=== PATIENT | female | born 1995 | race Caucasian/White ===

== ENCOUNTER 2016-11-20 07:03 | Emergency (ER) | payer BC ==
[2016-11-20 07:21] VITALS: BP 129/81; PULSE 62; RESP 16; TEMP 98.2; O2SAT 98
[2016-11-20] MEDS ORDERED: IBUPROFEN 200 MG TAB PO ONE (07:22)
--- NOTE | 2016-11-20 07:28 | UCPHY ---
H & P Time Seen by Provider: 11/20/16 07:24 Patient Type: New HPI/ROS: CHIEF COMPLAINT: Sore throat History by patient HISTORY OF PRESENT ILLNESS: 21-year-old woman who is otherwise healthy presents complaining of sore throat which she describes mostly as itchy. She says it does hurt to swallow, but she is able to take fluids without difficulty. There is no dysphonia. There is no fever or cough. She does have a runny nose and she says her throat feels scratchy. There is no difficulty breathing. She has not taken anything for it. She denies any swollen lymph nodes. She is otherwise feeling well. She has been exposed to strep. REVIEW OF SYSTEMS: As in HPI, and all other systems reviewed and are negative Smoking Status: Never smoked Physical Exam: General Appearance: Alert and no distress. Head: normocephalic, atraumatic, no sinus tenderness Eyes: Pupils equal and round no injection. Ears: TM clear bilat OP: mucus membranes moist, mild erythema, no tonsillar enlargement, no exudates Neck: no meningismus, small right nontender cervical node, no submandibular nodes Respiratory: Chest is nontender, lungs are clear to auscultation. Cardiac: regular rate and rhythm. Gastrointestinal: Abdomen is soft and nontender, no masses, bowel sounds normal. Musculoskeletal: Neck is supple and nontender. Extremities have full range of motion and are nontender. Skin: No rashes or lesions. Constitutional: Initial Vital Signs Temperature (C) 36.8 C 11/20/16 07:14 Heart Rate 62 11/20/16 07:14 Respiratory Rate 16 11/20/16 07:14 Blood Pressure 129/81 H 11/20/16 07:14 O2 Sat (%) 98 11/20/16 07:14 O2 Delivery Mode Room Air Allergies/Adverse Reactions: No Known Allergies Allergy (Unverified 11/20/16 07:12) Home Medications: Medication Instructions Recorded Bcp 11/20/16 Medical Decision Making ED Course/Re-evaluation: Patient presents with sore, scratchy throat and runny nose minimal other symptoms. Rapid strep done at triage was negative. I suspect URI versus allergic symptoms. I recommend patient give a trial of cetirizine. We discussed home care and return precautions. - Data Points Laboratory Results: 11/20/16 11/20/16 Unknown 07:20 Group A Strep Screen NEGATIVE (NEGATIVE) Group A Strep DNA Pending Medications Given: Discontinued Medications Ibuprofen (Motrin) 400 mg PO EDNOW ONE Stop: 11/20/16 07:23 Last Admin: 11/20/16 07:26 Dose: 400 mg Departure - Departure Disposition: Home, Routine, Self-Care Clinical Impression: Acute pharyngitis, unspecified Qualifiers: Pharyngitis/tonsillitis etiology: unspecified etiology Qualified Code(s): J02.9 - Acute pharyngitis, unspecified Condition: Good Instructions: Pharyngitis (ED) Additional Instructions: You were seen by Dr. Darlene Chirinos today. Return for any worsening or new concerns. Try cetirizine (Zyrtec) for runny nose and scratchy throat. Take ibuprofen as needed for sore throat. Drink warm fluids with honey. - PQRS PQRS Measurement: NA
== END 2016-11-20 07:38 | disposition home or self-care (01) ==
LOC: CED 07:03
DX: J02.9 Acute pharyngitis, unspecified (principal)
CPT/HCPCS: 87880-PO; 99203-PO; G0463-PO